=== PATIENT | female | born 1955 | race Caucasian/White ===

== ENCOUNTER 2017-10-31 07:09 | Inpatient (IN) ==
[2017-10-27 14:52] LABS: Basophils % 0.4 % (0.0-0.8); Eosinophils # 0.2 10*3/uL (0.0-0.87); Eosinophils % 2.5 % (0.00-10.9); Hematocrit 42.4 VOL% (35.7-47.0); Immature Granulocytes % 0.3 %; Immature Granulocytes Absolute 0.03 #; Lymphocytes % 22.3 % (21.3-54.2); Mean Corpuscular Hemoglobin 30 PG (27-34); Mean Corpuscular Volume 91.4 FL (87-102); Mean Platelet Volume 9.2 FL (9.6-12.0); Monocytes # 0.6 10*3/uL (0.11-0.8); Neutrophils % 67.5 % (38.7-73.9); Platelet Count 247 T/CUMM (130-400); Red Blood Count 4.64 MC/CUMM (3.8-5.5); Red Cell Distribution Width 12.8 % (9.3-17.3); White Blood Count 8.9 T/CUMM (4-12)
[2017-10-27 15:24] LABS: Albumin 4.1 G/DL (3.4-5.0); Bilirubin,Total 1.1 MG/DL (0.2-1.0); Calcium 9.6 MG/DL (8.5-10.1); Potassium 4.8 MMOL/L (3.5-5.1); Total Protein 7.8 G/DL (6.4-8.3)
[~2017-10-31 07:09] MED LIST: NITROGLYCERIN DRIP 50 MG/250 ML BOTTLE IV ONE; ceFAZolin 1,000 MG in SYRINGE 1 EACH IV ONE
[2017-10-31] MEDS ORDERED: ceFAZolin 1,000 MG VIAL ONE (08:14)
[2017-10-31] MEDS ORDERED: HEPARIN 5,000 UNIT/1 ML VIAL ONE (08:17)
[2017-10-31] MEDS ORDERED: LIDOCAINE 1% 20 ML VIAL ONE (08:18)
[2017-10-31] MEDS: LACTATED RINGERS 1,000 ML IV SCH ×3 (08:37→20:40)
[2017-10-31] MEDS ORDERED: GLUCAGON 1 MG VIAL IM PRN (09:53)
[2017-10-31] MEDS ORDERED: DEXTROSE 50% 25 GM/50 ML VIAL IV PRN (09:53)
[2017-10-31] MEDS ORDERED: ONDANSETRON 4 MG/2 ML VIAL IV PRN (09:53)
[2017-10-31] MEDS ORDERED: PROMETHAZINE 25 MG/1 ML VIAL IM PRN (09:53)
[2017-10-31] MEDS ORDERED: NALOXONE 0.4 MG/ML VIAL IV PRN (09:53)
[2017-10-31] MEDS ORDERED: ASPIRIN EC 81 MG TABLET PO SCH (10:00)
[2017-10-31] MEDS ORDERED: HEPARIN/NACL 0.9% 2 UNITS/ML 500 ML IV ONE (10:20)
[2017-10-31] MEDS ORDERED: PROPOFOL 200 MG/20 ML VIAL IV ONE (10:20)
[2017-10-31] MEDS ORDERED: HEPARIN 10,000 UNIT/10 ML VIAL ONE (10:20)
[2017-10-31] MEDS ORDERED: LIDOCAINE 1% 5 ML VIAL ONE (10:20)
[2017-10-31] MEDS ORDERED: fentaNYL 100 MCG/2 ML VIAL ONE (10:21)
[2017-10-31] MEDS ORDERED: SEVOFLURANE 1 UNIT/15 MINUTE INH ONE (10:21)
[2017-10-31] MEDS ORDERED: ROCURONIUM 100 MG/10 ML VIAL IV ONE (10:21)
[2017-10-31] MEDS ORDERED: GLYCOPYRROLATE 0.4 MG/2 ML VIAL ONE (10:21)
[2017-10-31] MEDS ORDERED: KETOROLAC 30 MG/1 ML VIAL ONE (10:21)
[2017-10-31] MEDS ORDERED: ONDANSETRON 4 MG/2 ML VIAL ONE (10:21)
[2017-10-31] MEDS ORDERED: SUCCINYLCHOLINE 200 MG/10 ML VIAL ONE (10:21)
[2017-10-31] MEDS ORDERED: SODIUM CHLORIDE 0.9% 1,000 ML IV ONE (10:22)
[2017-10-31] MEDS ORDERED: NEOSTIGMINE 10 MG/10 ML VIAL ONE (10:22)
[2017-10-31] MEDS ORDERED: LACTATED RINGERS 1,000 ML IV ONE (10:22)
[2017-10-31] MEDS ORDERED: PROTAMINE SULFATE 50 MG/5 ML VIAL IV ONE (10:25)
[2017-10-31] MEDS ORDERED: PROMETHAZINE 25 MG/1 ML VIAL ONE (10:35)
[2017-10-31] MEDS ORDERED: DEXAMETHASONE 4 MG/1 ML VIAL ONE ×2 (10:35→10:36)
[2017-10-31] MEDS ORDERED: PROMETHAZINE INJ 6.25 MG in SODIUM CHLORIDE 0.9% 50 ML IV ONE (10:37)
[2017-10-31] MEDS ORDERED: DEXAMETHASONE 10 MG/1 ML VIAL IV ONE (10:37)
[2017-10-31] MEDS ORDERED: NITROPRUSSIDE 50 MG/2 ML VIAL ONE (10:45)
[2017-10-31] MEDS: NITROPRUSSIDE 100 MG in DEXTROSE 5% 250 ML IV SCH (11:01)
[2017-10-31] MEDS: PHENYLEPHRINE DRIP 40 MG/250 ML PREMIX IV SCH (12:07)
[2017-10-31] MEDS ORDERED: ALUMINUM/MAGNES/SIMETH MAX STR 30 ML UDCUP PO ONE (13:43)
[2017-10-31] MEDS ORDERED: ALUMINUM/MAGNES/SIMETH MAX STR 30 ML UDCUP PO PRN (13:43)
[2017-10-31] MEDS ORDERED: MAGNESIUM HYDROXIDE SUSP 30 ML UDCUP PO PRN (14:14)
[2017-10-31] MEDS: INSULIN REGULAR 100 UNIT/ML SUBCUT SCH ×2 (15:36→20:14)
[2017-10-31] MEDS: ASPIRIN CHEW 81 MG TABLET PO SCH (20:04)
[2017-10-31] MEDS: KETOROLAC 10 MG TABLET PO SCH ×3 (20:04→23:00)
[2017-10-31] MEDS: PANTOPRAZOLE 40 MG TABLET PO SCH (20:14)
[2017-10-31] MEDS ORDERED: ROSUVASTATIN 10 MG TABLET PO SCH (21:00)
[2017-11-01] MEDS: INSULIN REGULAR 100 UNIT/ML SUBCUT SCH ×3 (00:53→12:16)
[2017-11-01] MEDS ORDERED: DEXTROSE 50% 25 GM/50 ML VIAL IV PRN (08:23)
[2017-11-01] MEDS ORDERED: GLUCAGON 1 MG VIAL IM PRN (08:23)
[2017-11-01] MEDS: LACTATED RINGERS 1,000 ML IV SCH ×2 (08:32→08:40)
[2017-11-01] MEDS: KETOROLAC 10 MG TABLET PO SCH ×2 (08:52→12:26)
[2017-11-01] MEDS: PANTOPRAZOLE 40 MG TABLET PO SCH (08:55)
[2017-11-01] MEDS: ASPIRIN CHEW 81 MG TABLET PO SCH (08:57)
[2017-11-01] MEDS ORDERED: CHOLECALCIFEROL 5,000 UNIT TABLET PO SCH (09:00)
[2017-11-01] MEDS ORDERED: LISINOPRIL 10 MG TABLET PO SCH (09:00)
[2017-11-01] MEDS ORDERED: CLOPIDOGREL 75 MG TABLET PO SCH ×2 (09:00)
[2017-11-01] MEDS ORDERED: POTASSIUM 99 MG PO SCH (09:00)
[2017-11-01] MEDS ORDERED: MAGNESIUM OXIDE 400 MG TABLET PO SCH (09:00)
[2017-11-01] MEDS ORDERED: LIRAGLUTIDE 1.2 MG SQ SCH (10:54)
[2017-11-01] MEDS: PHENYLEPHRINE DRIP 40 MG/250 ML PREMIX IV SCH (11:41)
[2017-11-01] MEDS: NITROPRUSSIDE 100 MG in DEXTROSE 5% 250 ML IV SCH (11:41)
[2017-11-01 16:27] VITALS: BP 142/77
[2017-11-01] MEDS ORDERED: NON-FORMULARY MEDICATION (Metformin Hcl [Metformin Hcl Er] 1,000 MG) PO SCH (21:00)
[2017-11-01] MEDS ORDERED: NON-FORMULARY MEDICATION (Lisinopril [Lisinopril] 30 MG) PO SCH (21:00)
== END 2017-11-01 17:15 | disposition home or self-care (01) | DRG 39 ==
LOC: N.SDSINP 07:09 → N.ICU 10:42
PROVIDERS: ADMIT Surgery; ATTEND Surgery